=== PATIENT | male | born 1955 ===

== ENCOUNTER 2016-08-03 14:37 | Emergency (ER) | payer BC ==
--- NOTE | 2016-08-03 15:53 | UC ---
Shoulder Pain HPI - HPI Summary HPI Summary: 60 male presents with complaints of left shoulder pain that began Tuesday after skipping rocks in water. Patient states since then he has had significant pain when trying to lift his shoulder. Denies numbness/tingling, redness, obvious deformity, bruising, and recent blunt trauma. States when he tries to lift his shoulder and when injury first occurred he heard a "snap, crackle and pop". Has not fallen on shoulder. Patient has been taking Aleve and icing it without relief. Does have gout that he takes medication for currently. No other complaints or injuries at this time. Does admits to having a dull ache in the same shoulder weeks ago after a fall that was starting to improve. - History of Current Complaint Chief Complaint: UCUpperExtremity Stated Complaint: LEFT SHOULDER PAIN/INJURY Time Seen by Provider: 08/03/16 15:32 Hx Obtained From: Patient Onset/Duration: Sudden Onset, Lasting Days, Still Present Timing: Constant - when lifting Severity Initially: Moderate Severity Currently: Mild Location Of Pain: Is Discrete @ - left lateral shoulder Pain Intensity: 1 Pain Scale Used: 0-10 Numeric - when resting and 7/10 when moving Character: Sharp - with lifting and with movement, Dull, Aching Aggravating Factor(s): Movement, Lifting Alleviating Factor(s): Rest Associated Signs And Symptoms: Positive: Negative Related History: Dominant Hand Right - Allergies/Home Medications Allergies/Adverse Reactions: Allergies Allergy/AdvReac Type Severity Reaction Status Date / Time Chlorpheniramine Allergy Rash Verified 08/03/16 14:44 [From Stefania] Phenylephrine [From Stefania] Allergy Rash Verified 08/03/16 14:44 Home Medications: Home Medications Allopurinol TAB* [Zyloprim 300 MG TAB*] 300 mg PO DAILY 08/03/16 [History Confirmed 08/03/16] PMH/Surg Hx/FS Hx/Imm Hx - Additional Past Medical History Additional PMH: PMH: significant for GOUT. Denies HTN, DM, and Asthma - Surgical History Surgical History: Yes Surgery Procedure, Year, and Place: Gangular cyst removed - Family History Known Family History: Positive: None - Social History Alcohol Use: Occasionally Substance Use Type: None Smoking Status (MU): Never Smoked Tobacco - Immunization History Most Recent Influenza Vaccination: none Most Recent Tetanus Shot: utd Most Recent Pneumonia Vaccination: utd Review of Systems Constitutional: Negative Skin: Negative Respiratory: Negative Cardiovascular: Negative Neurovascular: Negative Musculoskeletal: Arthralgia, Decreased ROM, Myalgia - left shoulder All Other Systems Reviewed And Are Negative: Yes Physical Exam Triage Information Reviewed: Yes Appearance: Well-Appearing, No Pain Distress, Well-Nourished Vital Signs: Initial Vital Signs Temp 98.5 F 08/03/16 14:45 Pulse 70 08/03/16 14:45 Resp 16 08/03/16 14:45 BP 164/92 08/03/16 14:45 Pulse Ox 96 08/03/16 14:45 Bp elevated was re-checked. improved. (154/90) However patient was recommended to re-check at PCP within 2 weeks. Vital Signs Reviewed: Yes Eyes: Positive: Conjunctiva Clear ENT: Positive: Normal ENT inspection, Hearing grossly normal Neck: Positive: Supple, Nontender Respiratory: Positive: Chest non-tender, Lungs clear, Normal breath sounds, No respiratory distress, No accessory muscle use Cardiovascular: Positive: RRR, No Murmur, Pulses Normal - 2+, Brisk Capillary Refill - <2 seconds Musculoskeletal: Positive: No Edema, Strength Limited @ - 3/5 with shoulder flexion/extension when compared to right shoulder, rest of upper extremity normal strength and ROM, ROM Limited @ - unable to extend and flex, abduct and adduct left shoulder, Other: - drop arm test of left shoulder positive Neurological: Positive: Alert - sensation intact, Muscle Tone Normal Skin Exam: Normal Skin: Positive: Other - no ecchymosis, obvious deformity or edema Diagnostics - Radiology left shoulder Xray Interpretation: Positive (See Comments) - AC joint arthritis. no sign of fracture Radiology Interpretation Completed By: Radiologist Shoulder Course/Dx - Course Course Of Treatment: x-ray obtained to rule out arthritis, fracture, and gout. x -ray showed AC joint arthrits, possible cause of symptoms on top of possible rotator cuff injury. does not appear to be gout due to PE findings and HPI. recommended naproxen daily for the next 5-7 days, heat/ice and rest. follow up with ortho or PCP for further evaluation and imaging. Use pain as guide. Aware of worsening signs and symptoms to watch out for. - Differential Dx/Diagnosis Differential Diagnosis/HQI/PQRI: AC Separation, Arthritis, Contusion, Fracture ( Closed), Rotator Cuff Injury, Sprain, Strain, Tendonitis Provider Diagnoses: left AC joint arthritis, left shoulder pain Discharge - Discharge Plan Condition: Stable Disposition: HOME Prescriptions: Cyclobenzaprine TAB* [Flexeril 10 MG TAB*] 10 mg PO BEDTIME #10 tab Ibuprofen TAB* [Motrin TAB* 600 MG] 600 mg PO Q6H PRN #30 tab PRN Reason: Pain Patient Education Materials: Rotator Cuff Injury (ED), Hypertension (ED), Shoulder Pain (ED), Arthritis (ED) Referrals: Kip Holloway [Primary Care Provider] - Gabe Ngo MD [Medical Doctor] - Additional Instructions: Take prescribed ibuprofen for pain and inflammation as desired. Take muscle relaxer at bedtime to help decrease tension and spasm. Heat/ice multiple times daily, alternating. Rest your shoulder and use pain as your guide. Follow up with ortho or PCP for further imaging and evaluation. Also to re- check BP within 2 weeks. If symptoms worsen or new symptoms develop please return.
--- NOTE | 2016-08-03 16:03 | RAD ---
Indication: Left shoulder pain. 3 views left shoulder demonstrates AC joint arthritis. There is no fracture or dislocation. No other bone or joint abnormality is noted. IMPRESSION: AC joint arthritis. No fracture is identified.
[2016-08-03 16:16] VITALS: BP 154/90
== END 2016-08-03 16:16 | disposition home or self-care (01) ==
LOC: UCCORT 14:37
DX: M19.019 Primary osteoarthritis, unspecified shoulder (principal); M25.512 Pain in left shoulder
CPT/HCPCS: 99212; G0463